=== PATIENT | female | born 1935 | race Caucasian/White ===

== ENCOUNTER → 2016-11-23 | Outpatient (CLI) | payer MEDICARE ==
[~2016-11-23] MED LIST: ISOVUE-370 76% 100ML VIAL (Q9967) As Ordered ONE
--- NOTE | 2016-11-23 16:47 | REP ---
CT ANGIOGRAM HEAD: HISTORY: Aneurysm. CONTRAST: Isovue-370, 75 mL. COMPARISON: 11/19/2014. 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 The aneurysm measures 2 x 2 mm and is unchanged in size compared to the previous study. There is no other aneurysm or arteriovenous malformation. Calcified atherosclerotic plaques are present in the cavernous and supraclinoid internal carotid arteries. These procedure at least mild stenosis. Major intracranial vessels are patent. There is origin of the right posterior cerebral artery. 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 Signed by Reg Gregg MD 11/23/2016 04:54 P
== END ==
LOC: M RAD 14:45
PROVIDERS: ATTEND Psychiatry & Neurology Neurology
DX: I67.1 Cerebral aneurysm, nonruptured (principal); Z86.73 Personal history of transient ischemic attack (TIA), and cerebral infarction without residual deficits
CPT/HCPCS: 70496; Q9967

== ENCOUNTER 2017-06-17 06:09 | Day surgery (SDC) | payer MEDICARE ==
[2017-06-17] MEDS ORDERED: LIDOCAINE 1% MDV 20ML VIAL SQ (06:15)
[2017-06-17] MEDS: PROPARACAINE 0.5% OPHTH SOL 15ML OD (06:30)
[2017-06-17] MEDS: OFLOXACIN 0.3 % (OCUFLOX) OPTH SOL 5ML OD (06:31)
[2017-06-17] MEDS: TROPICAMIDE 1% OPHTH SOLN 2ML OD (06:32)
[2017-06-17] MEDS: PHENYLEPHRINE 2.5% OPHTH SOL 2ML OD (06:33)
[2017-06-17 07:10] LABS: BEDSIDE GLUCOSE 138 MG/DL (83-110)
[2017-06-17] MEDS ORDERED: MIDAZOLAM INJ 2 MG/2 ML VIAL (J2250) As Ordered (07:34)
[2017-06-17] MEDS ORDERED: fentaNYL 100 MCG/2 ML INJECTION (J3010) As Ordered (07:34)
[2017-06-17] MEDS: POVIDONE-IODINE 5% OPHTH PREP SOL 30ML As Ordered (07:37)
[2017-06-17] MEDS: CEFUROXIME 1MG/0.1ML INTRACAMERAL INJ As Ordered (07:43)
[2017-06-17] MEDS: ACETYLCHOLINE OPHTH SOLN 1% 2ML (MIOCHOL-E) As Ordered (07:43)
[2017-06-17] MEDS: BALANCED SALT IRRIGATION SOLUTION 500ML BAG (FOR OR EYE MACHINE) As Ordered (07:43)
[2017-06-17] MEDS: DUOVISC (0.50ML VISCOAT/0.55ML PROVISC) OPHTH KIT As Ordered ×2 (07:43→07:44)
[2017-06-17] MEDS: LIDOCAINE 0.75%/EPINEPHRINE 0.025% IN BSS 1ML SYR INTRACAMERAL (OR ONLY) As Ordered (07:44)
== END 2017-06-17 08:50 | disposition home or self-care (01) ==
LOC: M SDC 06:09
DX: H25.11 Age-related nuclear cataract, right eye (principal); E11.9 Type 2 diabetes mellitus without complications; I10 Essential (primary) hypertension; E78.5 Hyperlipidemia, unspecified; Z79.899 Other long term (current) drug therapy; Z86.79 Personal history of other diseases of the circulatory system
CPT/HCPCS: 66984

== ENCOUNTER 2017-06-24 07:19 | Day surgery (SDC) | payer MEDICARE ==
[2017-06-24] MEDS ORDERED: LIDOCAINE 1% MDV 20ML VIAL SQ (07:30)
[2017-06-24] MEDS: TROPICAMIDE 1% OPHTH SOLN 2ML XX (07:59)
[2017-06-24] MEDS: PROPARACAINE 0.5% OPHTH SOL 15ML XX (07:59)
[2017-06-24] MEDS: OFLOXACIN 0.3 % (OCUFLOX) OPTH SOL 5ML XX (07:59)
[2017-06-24] MEDS: PHENYLEPHRINE 2.5% OPHTH SOL 2ML XX (07:59)
[2017-06-24 08:02] LABS: BEDSIDE GLUCOSE 140 MG/DL (83-110)
[2017-06-24] MEDS ORDERED: fentaNYL 100 MCG/2 ML INJECTION (J3010) As Ordered (08:29)
[2017-06-24] MEDS ORDERED: MIDAZOLAM INJ 2 MG/2 ML VIAL (J2250) As Ordered (08:29)
[2017-06-24] MEDS: POVIDONE-IODINE 5% OPHTH PREP SOL 30ML As Ordered (08:32)
[2017-06-24] MEDS: BALANCED SALT IRRIGATION SOLUTION 500ML BAG (FOR OR EYE MACHINE) As Ordered (08:37)
[2017-06-24] MEDS: DUOVISC (0.50ML VISCOAT/0.55ML PROVISC) OPHTH KIT As Ordered (08:37)
[2017-06-24] MEDS: ACETYLCHOLINE OPHTH SOLN 1% 2ML (MIOCHOL-E) As Ordered (08:37)
[2017-06-24] MEDS: CEFUROXIME 1MG/0.1ML INTRACAMERAL INJ As Ordered (08:38)
[2017-06-24] MEDS: LIDOCAINE 0.75%/EPINEPHRINE 0.025% IN BSS 1ML SYR INTRACAMERAL (OR ONLY) As Ordered (08:38)
== END 2017-06-24 09:35 | disposition home or self-care (01) ==
LOC: M SDC 07:19
DX: H25.12 Age-related nuclear cataract, left eye (principal); H40.9 Unspecified glaucoma; E11.40 Type 2 diabetes mellitus with diabetic neuropathy, unspecified; I10 Essential (primary) hypertension; E78.00 Pure hypercholesterolemia, unspecified; M19.90 Unspecified osteoarthritis, unspecified site; R42 Dizziness and giddiness; Z79.899 Other long term (current) drug therapy; Z79.84 Long term (current) use of oral hypoglycemic drugs; Z79.02 Long term (current) use of antithrombotics/antiplatelets
CPT/HCPCS: 66984

== ENCOUNTER 2020-10-06 12:38 | Inpatient (IN) | payer MEDICARE ==
[~2020-10-06] VITALS: Ht 149.9 cm; Wt 51.9 kg
[~2020-10-06 12:38] MED LIST changes: +ATEN25TA PO; +ATOR1TAB19 PO; +BIMA01SOL OU; +GLIP5TAB8 PO; -ISOVUE-370 76% 100ML VIAL (Q9967) As Ordered ONE; +LISI10TA22 PO; +MAGN1TAB26 PO; +METF500T13 PO; +PLAV1TAB2 PO; +VITA100067 PO; +[UNRECOGNIZED DRUG - CODE] PO
[2020-10-06 15:30] VITALS: BP 118/58
[2020-10-06 16:28] LABS: HEMATOCRIT 29.2 % (36.0-47.0); HEMOGLOBIN 9.5 g/dl (12.0-15.5); MEAN CORPUSCULAR HEMOGLOBIN 31.6 pg (27.0-33.0); MEAN CORPUSCULAR HGB CONC 32.5 g/dl (32.0-36.5); PLATELET COUNT, AUTOMATED 232 10^3/uL (150-450); RED BLOOD COUNT 3.01 10^6/uL (4.00-5.40); WHITE BLOOD COUNT 13.3 10^3/uL (4.0-10.0)
[2020-10-06 16:56] LABS: CREATININE FOR GFR 1.18 MG/DL (0.55-1.30); GLOMERULAR FILTRATION RATE 46.2 (>32); POTASSIUM SERUM 3.8 MEQ/L (3.5-5.1)
[2020-10-06] MEDS ORDERED: PANTOPRAZOLE 40MG VIAL (C9113 PER 1) IV ONE (17:00)
--- NOTE | 2020-10-06 17:16 | HPEPDOC ---
General Date of Admission October 06, 2020 at 15:05 Date of Service: October 06, 2020 Chief Complaint The patient is a 84-year-old female admitted with a reason for visit of Lower Gi Bleed. Source: Patient, RN/MD History of Present Illness 84 year old female with PMH of DM, temporal arteritis on prednisone , Aortic stenosis, glaucoma, CKD stage 3, TIA presented to outside hospital ED with 1 e pisode of black tarry stool. Labs showed that Hb was 7.1 which had dropped from 10.8 in July 2020. Outside hospital did not have any GI or surgical specialists so was transferred to our hospital for Gastrointestinal bleeding. Patient reports that she has been having some abdominal cramps for 2 days and did not have a bowel movement, which is not unusual that this morning she had a severe abdominal cramps and had to kate to the toilet. Then she had an accident with black tarry stool all over her undergarments the floor and the toilet seat, which she described as very sticky and difficult to remove and very smelly. . She went to the emergency room for evaluation. In [facility] ED she was found to have an H&H of 7.1, so was transferred here for a GI bleed. Of note, the patient was started on prednisone 40 mg in July for severe headache and in the first week of August, had temporal artery biopsy, which showed temporal arteritis. Most recently about 2 weeks ago her prednisone has been reduced to 35 mg. Patient also reported an episode of choking about 3 weeks ago when she felt that she choked on a pill then for about a week she had episodes of coughing, difficulty in swallowing, difficulty in breathing, poor appetite and then she coughed out a hard, small, rounded pea like thing after which her breathing improved, her appetite also improved. Lab work in our hospital shows a hemoglobin of 9.5. She did get about three fourths of a bag of blood, which was started at [facility] Home Medications Scheduled (Vision Vitamins) 1 Tab Tab, 1 TAB PO BID, (Reported) Atenolol (Atenolol) 25 Mg Tab, 25 MG PO DAILY, (Reported) Atorvastatin Calcium (Atorvastatin Calcium) 10 Mg Tab, 10 MG PO DAILY, (Reported) Bimatoprost (Lumigan) 50 Drop/2.5 Ml Virgen, 1 DROP OU QHS, (Reported) Clopidogrel Bisulfate (Plavix) 75 Mg Tab, 75 MG PO DAILY, (Reported) Glipizide (Glipizide) 5 Mg Tab, 5 MG PO DAILY, (Reported) Lisinopril (Lisinopril) 10 Mg Tab, 10 MG PO DAILY, (Reported) Magnesium Oxide (Magnesium Oxide) 400 Mg Tab, 400 MG PO DAILY, (Reported) Metformin HCl (Metformin HCl) 500 Mg Tab, 1,000 MG PO QAM, (Reported) Metformin HCl (Metformin HCl) 500 Mg Tab, 500 MG PO QPM, (Reported) Vitamin D (Vitamin D) 1,000 Unit Cap, 1,000 UNIT PO DAILY, (Reported) Allergies Coded Allergies: No Known Allergies (Unverified , 06/24/17) Past Medical History Medical History DM, temporal arteritis , Aortic stenosis, glaucoma, CKD stage 3, TIA Surgical History Hysterectomy Appendectomy 3 Abdominal hernia repair Bilateral cataract surgery Temporal artery biopsy , Metal plate in tooth Family History Significant Family History: Cancer (mother uterine cancer and breast cancer), Heart disease (. Father had rheumatic heart disease), Other (. Sister had Parkinson's disease) Social History * Smoker: non-smoker Alcohol: Denies Drugs: denies A-FIB/CHADSVASC A-FIB History Current/History of A-Fib/PAF?: No Review of Systems Constitutional: Denies: Chills, Fever, Night Sweats Eyes: Denies: Pain, Vision change ENT: Denies: Head Aches, Ear Pain, Dysphagia Skin: Denies: Rash, Lesions, Breakdown Pulmonary: Denies: Dyspnea, Cough Cardiovascular: Denies: Chest Pain, Palpitations, Orthopnea, Paroxysmal Noc. Dyspnea, Lt Headedness Gastrointestinal: Reports: Constipation, Melena; Denies: Nausea, Vomiting, Abdominal Pain, Other Symptoms Genitourinary: Reports: Incontinence; Denies: Dysuria, Frequency, Retention Physical Examination General Exam: Positive: Alert, Cooperative, No Acute Distress Eye Exam: Positive: PERRLA, Conjunctiva & lids normal, EOMI; Negative: Sclera icteric ENT Exam: Positive: Atraumatic, Mucous membr. moist/pink, Pharynx Normal Neck Exam: Positive: Supple; Negative: JVD, thyromegaly Chest Exam: Positive: Clear to auscultation, Normal air movement Heart Exam: Positive: Rate Normal, Regular Rhythm, Normal S1, Normal S2; Negative: Murmurs, Rubs Abdomen Exam: Positive: BS Hyperactive, Soft; Negative: Tenderness, Hepatospenomegaly Extremity Exam: Negative: Clubbing, Cyanosis, Edema Vital Signs Vital Signs Date Time Temp Pulse Resp B/P (MAP) Pulse Ox O2 Delivery O2 Flow Rate FiO2 10/06/20 15:30 97.9 71 20 118/58 (78) 100 Room Air Assessment/Plan 84 year old female with PMH of DM, temporal arteritis on prednisone , Aortic stenosis, glaucoma, CKD stage 3, TIA presented to outside hospital ED with 1 episode of black tarry stool. Labs showed that Hb was 7.1 which had dropped from 10.8 in July 2020. Outside hospital did not have any GI or surgical specialists so was transferred to our hospital for Gastrointestinal bleeding. Patient reports that she has been having some abdominal cramps for 2 days and did not have a bowel movement, which is not unusual that this morning she had a severe abdominal cramps and had to kate to the toilet. Then she had an accident with black tarry stool all over her undergarments the floor and the toilet seat, which she described as very sticky and difficult to remove and very smelly. . She went to the emergency room for evaluation. In [facility] ED she was found to have an H&H of 7.1, so was transferred here for a GI bleed. Gastrointestinal bleeding Likely gastritis, gastric ulcer due to a combination of prednisone and Plavix Will start on PPI and sucralfate Monitor H&H and transfuse as needed. Liquid diet If H&H continues to drop on melena. Continues with without any appropriate rise even with blood transfusion will then consult GI or surgery as then the patient may need EGD. Temporal arteritis Will continue on prednisone Diabetes Hypertension Continue atenolol Hold lisinopril TIA Continue statin Hold Plavix due to the GI bleed Glaucoma Will continue home eyedrops Plan / VTE VTE Prophylaxis Ordered?: Yes GRACE DURAN MD October 06, 2020 15:51
[2020-10-06] MEDS ORDERED: PRED20TA PO (17:17)
[2020-10-06] MEDS ORDERED: AMLO2.5T3 PO (17:17)
[2020-10-06] MEDS ORDERED: LISI2.5T2 PO (17:17)
[2020-10-06] MEDS ORDERED: GLIP10TA6 PO (17:17)
[2020-10-06] MEDS ORDERED: D31000TA2 PO (17:18)
[2020-10-06] MEDS ORDERED: CYAN100050 PO (17:22)
[2020-10-06] MEDS ORDERED: BASA100I SC (17:22)
[2020-10-06] MEDS: SUCRALFATE SUSP 1GM/10ML UD PO SCH ×2 (17:52→20:39)
[2020-10-06] MEDS: PANTOPRAZOLE SODIUM 40 MG in D5W 50 ML IV SCH ×2 (17:52→22:13)
[2020-10-06] MEDS ORDERED: DEXTROSE 50% 50 ML SYRINGE IV PRN (19:00)
[2020-10-06] MEDS ORDERED: GLUCAGON INJ 1MG VIAL SC PRN (19:00)
[2020-10-06] MEDS ORDERED: GLUCOSE 4GM CHEW TABLET PO PRN (19:00)
[2020-10-06] MEDS: atenoloL 25 MG TAB PO SCH (20:40)
[2020-10-06] MEDS: ATORVASTATIN 10 MG TAB PO SCH (20:40)
[2020-10-06] MEDS: HumaLOG INSULIN (NovoLOG) PER UNIT SC SCH (20:40)
[2020-10-06 21:00] VITALS: BP 118/59
[2020-10-06 22:30] LABS: HEMATOCRIT 25.1 % (36.0-47.0); HEMOGLOBIN 8.1 g/dl (12.0-15.5); MEAN CORPUSCULAR HEMOGLOBIN 31.4 pg (27.0-33.0); MEAN CORPUSCULAR HGB CONC 32.3 g/dl (32.0-36.5); MEAN CORPUSCULAR VOLUME 97.3 fl (80.0-96.0); PLATELET COUNT, AUTOMATED 199 10^3/uL (150-450); RED BLOOD COUNT 2.58 10^6/uL (4.00-5.40)
[2020-10-07] VITALS (9 sets, daily range): BP systolic 96–114; BP diastolic 6–56
[2020-10-07] MEDS: PANTOPRAZOLE SODIUM 40 MG in D5W 50 ML IV SCH ×5 (02:03→22:15)
[2020-10-07 06:18] LABS: BASO % 0.2 % (0.0-1.0); EOS # 0.1 10^3/uL (0.0-0.5); EOS % 0.5 % (0.0-3.0); HEMATOCRIT 24.7 % (36.0-47.0); HEMOGLOBIN 7.9 g/dl (12.0-15.5); LYMPH # 2.5 10^3/uL (1.5-5.0); LYMPH % 26.9 % (24.0-44.0); MEAN CORPUSCULAR HEMOGLOBIN 31.2 pg (27.0-33.0); MEAN CORPUSCULAR VOLUME 97.6 fl (80.0-96.0); MONO % 10.5 % (2.0-8.0); NEUTROPHILS # 5.7 10^3/uL (1.5-8.5); NEUTROPHILS % 60.3 % (36.0-66.0); PLATELET COUNT, AUTOMATED 202 10^3/uL (150-450); RED BLOOD COUNT 2.53 10^6/uL (4.00-5.40); WHITE BLOOD COUNT 9.4 10^3/uL (4.0-10.0)
[2020-10-07 06:48] LABS: CALCIUM LEVEL 8.2 MG/DL (8.8-10.2); CREATININE FOR GFR 1.13 MG/DL (0.55-1.30); GLOMERULAR FILTRATION RATE 48.6 (>32); PERCENT SATURATION 63.9 % (13.2-45.0); POTASSIUM SERUM 4.1 MEQ/L (3.5-5.1)
[2020-10-07] MEDS: HumaLOG INSULIN (NovoLOG) PER UNIT SC SCH ×4 (07:30→21:00)
[2020-10-07] MEDS: atenoloL 25 MG TAB PO SCH (09:00)
[2020-10-07] MEDS: ATORVASTATIN 10 MG TAB PO SCH (09:03)
[2020-10-07] MEDS: SUCRALFATE SUSP 1GM/10ML UD PO SCH ×4 (09:04→21:23)
[2020-10-07] MEDS: predniSONE 5 MG TAB PO SCH (09:04)
[2020-10-07] MEDS: predniSONE 20 MG TAB PO SCH (09:05)
--- NOTE | 2020-10-07 11:13 | IPNPDOC ---
Subjective Date Seen The patient was seen on 10/07/20. Subjective Chief Complaint/HPI No further melena in the hospital. No complaints overnight. No abdominal cramps. Objective Physical Examination General Exam: Positive: Alert, Cooperative, No Acute Distress Eye Exam: Positive: PERRLA, Conjunctiva & lids normal, EOMI; Negative: Sclera icteric ENT Exam: Positive: Atraumatic, Mucous membr. 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 Labs showed that Hb was 7.1 which had dropped from 10.8 in July 2020. Outside hospital did not have any GI or surgical specialists so was transferred to our hospital for Gastrointestinal bleeding. Patient reports that she has been having some abdominal cramps for 2 days and did not have a bowel movement, which is not unusual that this morning she had a severe abdominal cramps and had to kate to the toilet. Then she had an accident with black tarry stool all over her undergarments the floor and the toilet seat, which she described as very sticky and difficult to remove and very smelly. . She went to the emergency room for evaluation. In [facility] ED she was found to have an H&H of 7.1, so was transferred here for a GI bleed. Gastrointestinal bleeding with acute blood loss anemia in the setting of Plavix. Likely Has gastritis/gastric ulcer due to a prednisone on PPI and sucralfate Monitor H&H and transfuse as needed. Liquid diet If H&H continues to drop on melena. Continues with without any appropriate rise even with blood transfusion will then consult GI or surgery as then the patient may need EGD. received 1 unit yesterday will give 1 more unit today. Temporal arteritis Will continue on prednisone Diabetes will give lispro as per sliding scle sugars have been low. Hypertension Continue atenolol Hold lisinopril TIA Continue statin Hold Plavix due to the GI bleed Glaucoma Will continue home eyedrops Plan/VTE VTE Prophylaxis Ordered?: Yes VS, I&O, 24H, Fishbone Vital Signs/I&O Vital Signs Date Time Temp Pulse Resp B/P (MAP) Pulse Ox O2 Delivery O2 Flow Rate FiO2 10/06/20 21:00 98.1 76 18 118/59 (78) 98 Room Air I&O- Last 24 Hours up to 6 AM 10/07/20 07:00 Intake Total 420 ml Output Total 850 ml Balance -430 ml Laboratory Data 24H LABS Laboratory Tests 2 10/06/20 16:13: Nucleated Red Blood Cells % (auto) 0.6H, Anion Gap 7L, Glomerular Filtration Rate 46.2, Calcium Level 8.0L 10/06/20 20:37: Bedside Glucose (Misc Panel) 96 10/06/20 22:22: Nucleated Red Blood Cells % (auto) 0.8H 10/07/20 05:35: Nucleated Red Blood Cells % (auto) 0.6H, Anion Gap 5L, Glomerular Filtration Rate 48.6, Calcium Level 8.2L, Immature Granulocyte % (Auto) 1.6, Neutrophils (%) (Auto) 60.3, Lymphocytes (%) (Auto) 26.9, Monocytes (%) (Auto) 10.5H, Eosinophils (%) (Auto) 0.5, Basophils (%) (Auto) 0.2, Neutrophils # (Auto) 5.7, Lymphocytes # (Auto) 2.5, Monocytes # (Auto) 1.0H, Eosinophils # (Auto) 0.1, Basophils # (Auto) 0.0, Iron Level 129, Total Iron Binding Capacity 202L, Transferrin % Saturation 63.9H, Ferritin 188 CBC/BMP Laboratory Tests 10/06/20 16:13 10/06/20 22:22 10/07/20 05:35 GRACE DURAN MD October 07, 2020 06:59
[2020-10-07] MEDS: LEVEMIR (INSULIN DETEMIR) 1 UNITS/0.01ML SC SCH (13:03)
[2020-10-07 13:06] LABS: FOLATE 3.3 NG/ML (>5.4)
[2020-10-08] MEDS: PANTOPRAZOLE SODIUM 40 MG in D5W 50 ML IV SCH ×3 (03:10→14:00)
[2020-10-08 06:00] VITALS: BP 109/59
[2020-10-08 06:03] LABS: BASO % 0.2 % (0.0-1.0); EOS % 0.3 % (0.0-3.0); HEMATOCRIT 31.4 % (36.0-47.0); LYMPH # 2.8 10^3/uL (1.5-5.0); LYMPH % 22.2 % (24.0-44.0); MEAN CORPUSCULAR HEMOGLOBIN 31.8 pg (27.0-33.0); MEAN CORPUSCULAR HGB CONC 33.1 g/dl (32.0-36.5); MONO # 1.2 10^3/uL (0.0-0.8); MONO % 9.5 % (2.0-8.0); NEUTROPHILS # 8.4 10^3/uL (1.5-8.5); NEUTROPHILS % 66.8 % (36.0-66.0); PLATELET COUNT, AUTOMATED 218 10^3/uL (150-450); RED BLOOD COUNT 3.27 10^6/uL (4.00-5.40); WHITE BLOOD COUNT 12.6 10^3/uL (4.0-10.0)
[2020-10-08 06:12] LABS: HEMOGLOBIN 10.4 g/dl (12.0-15.5)
[2020-10-08 06:25] LABS: CALCIUM LEVEL 7.8 MG/DL (8.8-10.2); CREATININE FOR GFR 1.13 MG/DL (0.55-1.30); GLOMERULAR FILTRATION RATE 48.6 (>32); POTASSIUM SERUM 3.8 MEQ/L (3.5-5.1)
[2020-10-08] MEDS: HumaLOG INSULIN (NovoLOG) PER UNIT SC SCH ×2 (07:30→13:06)
[2020-10-08] MEDS ORDERED: SUCR1TA PO (07:37)
[2020-10-08] MEDS ORDERED: PANT40TA29 PO (07:37)
[2020-10-08] MEDS ORDERED: FERR1TAB8 PO (07:38)
[2020-10-08] MEDS ORDERED: FOLI1TAB11 PO (07:38)
[2020-10-08] MEDS: ATORVASTATIN 10 MG TAB PO SCH (08:07)
[2020-10-08] MEDS: predniSONE 20 MG TAB PO SCH (08:07)
[2020-10-08] MEDS: SUCRALFATE SUSP 1GM/10ML UD PO SCH ×2 (08:07→13:05)
[2020-10-08] MEDS: predniSONE 5 MG TAB PO SCH (08:07)
[2020-10-08] MEDS ORDERED: FOLIC ACID 1 MG TAB PO SCH (09:00)
[2020-10-08] MEDS ORDERED: FERROUS SULFATE 325MG TAB PO SCH (09:00)
[2020-10-08] MEDS: LEVEMIR (INSULIN DETEMIR) 1 UNITS/0.01ML SC SCH (10:02)
[2020-10-08 14:00] VITALS: BP 105/54
[2020-10-08 14:13] LABS: HEMATOCRIT 34.3 % (36.0-47.0); HEMOGLOBIN 11.1 g/dl (12.0-15.5); MEAN CORPUSCULAR HEMOGLOBIN 31.4 pg (27.0-33.0); MEAN CORPUSCULAR HGB CONC 32.4 g/dl (32.0-36.5); MEAN CORPUSCULAR VOLUME 96.9 fl (80.0-96.0); PLATELET COUNT, AUTOMATED 223 10^3/uL (150-450); RED BLOOD COUNT 3.54 10^6/uL (4.00-5.40); WHITE BLOOD COUNT 11.2 10^3/uL (4.0-10.0)
--- NOTE | 2020-10-08 16:36 | DS.PDOC ---
Discharge Summary General Date of Admission October 06, 2020 at 15:05 Date of Discharge 10/08/20 Discharge Summary PROCEDURES PERFORMED DURING STAY: [None]. 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 Labs showed that Hb was 7.1 which had dropped from 10.8 in July 2020. Outside hospital did not have any GI or surgical specialists so was transferred to our hospital for Gastrointestinal bleeding. Patient reports that she has been having some abdominal cramps for 2 days and did not have a bowel movement, which is not unusual that this morning she had a severe abdominal cramps and had to kate to the toilet. Then she had an accident with black tarry stool all over her undergarments the floor and the toilet seat, which she described as very sticky and difficult to remove and very smelly. . She went to the emergency room for evaluation. In [facility] ED she was found to have an H&H of 7.1, so was transferred here for a GI bleed. Gastrointestinal bleeding with acute blood loss anemia Likely gastritis, gastric ulcer due to a combination of prednisone and Plavix continue PPI and sucralfate received total 2 units of prbc. Hb stable. will give oral iron. Folate def started on po folate Temporal arteritis Will continue on prednisone Diabetes uncontrolled due to moiz prednisone. continue home meds long acting insulin and glipizode Hypertension BP has been low in hospital will stop lisinopril and amlodipine Continue atenolol only TIA Continue statin Hold Plavix due to the GI bleed can restart in 1 week after discussing with PMD. Glaucoma Will continue home eyedrops DISCHARGE MEDICATIONS: Please see below. ALLERGIES: Please see below. PHYSICAL EXAMINATION ON DISCHARGE: VITAL SIGNS: Please see below. General Exam: Positive: Alert, Cooperative, No Acute Distress Eye Exam: Positive: PERRLA, Conjunctiva & lids normal, EOMI; Negative: Sclera icteric ENT Exam: Positive: Atraumatic, Mucous membr. moist/pink, Pharynx Normal Neck Exam: Positive: Supple; Negative: JVD, thyromegaly Chest Exam: Positive: Clear to auscultation, Normal air movement Heart Exam: Positive: Rate Normal, Regular Rhythm, Normal S1, Normal S2; Negative: Murmurs, Rubs Abdomen Exam: Positive: BS Hyperactive, Soft; Negative: Tenderness, Hepatosplenomegaly Extremity Exam: Negative: Clubbing, Cyanosis, Edema LABORATORY DATA: Please see below. ACTIVITY: [As tolerated]. DIET: As tolerated DISCHARGE PLAN: Home DISCHARGE INSTRUCTIONS: PMD in1 week WIll need to be referred to GI for EGD and colonoscopy DISCHARGE CONDITION: [Stable]. TIME SPENT ON DISCHARGE: 35 minutes. Vital Signs/I&Os Vital Signs Date Time Temp Pulse Resp B/P (MAP) Pulse Ox O2 Delivery O2 Flow Rate FiO2 10/08/20 06:00 99.3 73 20 109/59 (76) 96 10/07/20 17:14 Room Air I&O- Last 24 Hours up to 6 AM 10/08/20 06:00 Intake Total 2100 ml Output Total 1050 ml Balance 1050 ml Laboratory Data Labs 24H Laboratory Tests 2 10/07/20 12:03: Bedside Glucose (Misc Panel) 293H 10/07/20 16:51: Bedside Glucose (Misc Panel) 381H 10/07/20 20:57: Bedside Glucose (Misc Panel) 118H 10/08/20 05:29: Immature Granulocyte % (Auto) 1.0, Neutrophils (%) (Auto) 66.8H, Lymphocytes (%) (Auto) 22.2L, Monocytes (%) (Auto) 9.5H, Eosinophils (%) (Auto) 0.3, Basophils (%) (Auto) 0.2, Neutrophils # (Auto) 8.4, Lymphocytes # (Auto) 2.8, Monocytes # (Auto) 1.2H, Eosinophils # (Auto) 0.0, Basophils # (Auto) 0.0, Nucleated Red Blood Cells % (auto) 0.3H, Anion Gap 8, Glomerular Filtration Rate 48.6, Calcium Level 7.8L CBC/BMP Laboratory Tests 10/08/20 05:29 FSBS Laboratory Tests Test 10/07/20 12:03 10/07/20 16:51 10/07/20 20:57 Range/Units Bedside Glucose (Misc Panel) 293 381 118 83-110 MG/DL Discharge Medications Scheduled Atenolol (Atenolol) 25 Mg Tab, 25 MG PO DAILY, (Reported) Atorvastatin Calcium (Atorvastatin Calcium) 10 Mg Tab, 10 MG PO DAILY, (Reported) Bimatoprost (Lumigan) 50 Drop/2.5 Ml Virgen, 1 DROP OU QHS, (Reported) Cholecalciferol (Vitamin D3) (Vitamin D3) 1,000 Unit Tablet, 1,000 UNITS PO DAILY, (Reported) Cyanocobalamin (Vitamin B-12) (Vitamin B-12) 1,000 Mcg Tablet, 1,000 MCG PO DAILY, (Reported) Ferrous Sulfate (Ferrous Sulfate) 325 Mg Tablet, 325 MG PO DAILY Folic Acid (Folic Acid) 1 Mg Tablet, 1 MG PO DAILY Glipizide (Glipizide) 10 Mg Tablet, 5 MG PO BID, (Reported) LEANNA MURPHY Insulin Glargine,Hum.rec.anlog (Basaglar Kwikpen U-100) 100 Unit/1 Ml Insuln.pen, 12 UNIT SC DAILY, (Reported) Magnesium Oxide (Magnesium Oxide) 400 Mg Tab, 400 MG PO DAILY, (Reported) Pantoprazole Sodium (Pantoprazole Sodium) 40 Mg Tablet.dr, 40 MG PO BID Prednisone (Prednisone) 20 Mg Tablet, 35 MG PO DAILY, (Reported) Sucralfate (Sucralfate) 1 Gm Tablet, 1 GM PO ACHS Allergies Coded Allergies: No Known Allergies (Unverified , 06/24/17) GRACE DURAN MD October 08, 2020 07:40
== END 2020-10-08 16:15 | disposition home or self-care (01) | DRG 813 ==
LOC: M MSPAV 15:05
PROVIDERS: ADMIT Internal Medicine Nephrology; ATTEND Internal Medicine Nephrology
PROC: 30233N1 Transfusion of Nonautologous Red Blood Cells into Peripheral Vein, Percutaneous Approach (ICD-10-PCS; principal; 2020-10-06)
DX: D68.32 Hemorrhagic disorder due to extrinsic circulating anticoagulants (principal); K29.71 Gastritis, unspecified, with bleeding; K28.4 Chronic or unspecified gastrojejunal ulcer with hemorrhage; D62 Acute posthemorrhagic anemia; E11.22 Type 2 diabetes mellitus with diabetic chronic kidney disease; N18.30 Chronic kidney disease, stage 3 unspecified; M31.6 Other giant cell arteritis; H40.9 Unspecified glaucoma; I35.0 Nonrheumatic aortic (valve) stenosis; Z86.73 Personal history of transient ischemic attack (TIA), and cerebral infarction without residual deficits; Z79.02 Long term (current) use of antithrombotics/antiplatelets; Z79.84 Long term (current) use of oral hypoglycemic drugs; Z79.899 Other long term (current) drug therapy; Z98.41 Cataract extraction status, right eye; Z98.42 Cataract extraction status, left eye; Z90.49 Acquired absence of other specified parts of digestive tract; Z79.52 Long term (current) use of systemic steroids

== ENCOUNTER → 2021-02-13 | Outpatient (REF) | payer MEDICARE ==
[~2021-02-13] MED LIST changes: +AMLO2.5T3 PO; +BASA100I SC; +CYAN100050 PO; +D31000TA2 PO; +FERR1TAB8 PO; +FOLI1TAB11 PO; +GLIP10TA6 PO; +LISI2.5T9 PO; +PANT40TA29 PO; +PRED20TA PO; +SUCR1TA PO
== END ==
LOC: M LAB REF 14:02
PROVIDERS: ATTEND Internal Medicine Nephrology
DX: N18.32 Chronic kidney disease, stage 3b (principal)

== ENCOUNTER → 2021-03-11 | Outpatient (REF) | payer MEDICARE | LOC: M LAB REF 13:19 | PROVIDERS: ATTEND Internal Medicine Nephrology | DX: N18.32 Chronic kidney disease, stage 3b (principal) ==

== ENCOUNTER 2021-07-31 08:42 | Emergency (ER) | payer MEDICARE ==
[~2021-07-31] VITALS: Ht 149.9 cm; Wt 57.3 kg
[~2021-07-31 08:42] MED LIST changes: -D31000TA2 PO; +VITA100093 PO
[2021-07-31] MEDS ORDERED: LIDOCAINE 2% 5ML JELLY UROJET TOP ONE (09:20)
[2021-07-31 10:11] LABS: BASO # 0.1 10^3/uL (0.0-0.2); BASO % 0.4 % (0.0-1.0); EOS % 0.2 % (0.0-3.0); HEMATOCRIT 40.4 % (36.0-47.0); HEMOGLOBIN 13.3 g/dl (12.0-15.5); LYMPH # 1.2 10^3/uL (1.5-5.0); LYMPH % 9.7 % (24.0-44.0); MEAN CORPUSCULAR HEMOGLOBIN 31.1 pg (27.0-33.0); MEAN CORPUSCULAR HGB CONC 32.9 g/dl (32.0-36.5); MEAN CORPUSCULAR VOLUME 94.4 fl (80.0-96.0); MONO % 13.5 % (2.0-8.0); NEUTROPHILS # 9.7 10^3/uL (1.5-8.5); NEUTROPHILS % 75.8 % (36.0-66.0); PLATELET COUNT, AUTOMATED 282 10^3/uL (150-450); RED BLOOD COUNT 4.28 10^6/uL (4.00-5.40); WHITE BLOOD COUNT 12.8 10^3/uL (4.0-10.0)
[2021-07-31 10:36] LABS: MONO # 1.7 10^3/uL (0.0-0.8)
[2021-07-31 11:05] LABS: ALBUMIN 3.7 GM/DL (3.2-5.2); BILIRUBIN,DIRECT 0.1 MG/DL (0.0-0.2); BILIRUBIN,TOTAL 0.9 MG/DL (0.2-1.0); CALCIUM LEVEL 9.4 MG/DL (8.8-10.2); CREATININE FOR GFR 1.43 MG/DL (0.55-1.30); POTASSIUM SERUM 4.2 MEQ/L (3.5-5.1); TOTAL PROTEIN 7.2 GM/DL (6.4-8.2)
[2021-07-31 13:11] VITALS: BP 133/79
[2021-07-31 16:13] LABS: HEMOGLOBIN A1c 8.8 %
== END 2021-07-31 13:33 | disposition home or self-care (01) ==
LOC: M ED 08:42
DX: M54.50 Low back pain, unspecified (principal); R91.1 Solitary pulmonary nodule; E11.65 Type 2 diabetes mellitus with hyperglycemia; N18.9 Chronic kidney disease, unspecified; F03.90 Unspecified dementia, unspecified severity, without behavioral disturbance, psychotic disturbance, mood disturbance, and anxiety; Z79.899 Other long term (current) drug therapy; Z79.84 Long term (current) use of oral hypoglycemic drugs; Z79.4 Long term (current) use of insulin

== ENCOUNTER → 2021-08-22 | Outpatient (REF) | payer MEDICARE ==
[2021-08-22 17:51] LABS: C REACTIVE PROTEIN QUANTITATIV < 0.30 MG/DL (0.00-0.30)
== END ==
LOC: M SFHCRHEU 13:49
PROVIDERS: ATTEND Internal Medicine
DX: M31.6 Other giant cell arteritis (principal); Z79.52 Long term (current) use of systemic steroids

== ENCOUNTER → 2021-09-30 | Outpatient (REF) | payer MEDICARE | LOC: M SFHCRHEU 09:42 | PROVIDERS: ATTEND Internal Medicine | DX: Z53.9 Procedure and treatment not carried out, unspecified reason (principal) ==